=== PATIENT | female | born 1970 | race Caucasian/White ===

== ENCOUNTER → 2017-06-18 | Outpatient (CLI) | payer BC ==
--- NOTE | 2017-06-18 13:53 | MAMMOGRAPHY REPORT ---
BILATERAL DIGITAL SCREENING MAMMOGRAM TOMOSYNTHESIS WITH CAD: 06/18/2017 CLINICAL HISTORY: Routine screening. Patient has no complaints. TECHNIQUE: Breast tomosynthesis in addition to standard 2D mammography was performed. Current study was also evaluated with a Computer Aided Detection (CAD) system. COMPARISON: Comparison is made to exams dated: 05/13/2016 mammogram, 01/18/2015 mammogram, 01/05/2014 ma mmogram, 01/04/2013 mammogram, and 01/10/2004 mammogram - [facility]. BREAST COMPOSITION: There are scattered areas of fibroglandular density in both breasts. FINDINGS: No suspicious masses, calcifications, or areas of architectural distortion are noted in ei ther breast. There has been no significant interval change compared to prior exams. IMPRESSION: ACR BI-RADS CATEGORY 1: NEGATIVE There is no mammographic evidence of malignancy. A 1 year screening mammogram is recommended. The pa tient will receive written notification of the results. Approximately 10% of breast cancers are not detected with mammography. A negative mammographic report should not delay biopsy if a clinically suggestive mass is present. Dariana Matt M.D. ah/:06/18/2017 12:55:35 Child Welfare Assistant: Kareen RENDON(Ant)(M), [facility] letter sent: Normal 1/2 BI-RADS Code: ACR BI-RADS Category 1: Negative
== END | disposition home or self-care (01) ==
LOC: C.MAMM 08:41
PROVIDERS: ATTEND Obstetrics & Gynecology
DX: Z12.31 Encounter for screening mammogram for malignant neoplasm of breast (principal)

== ENCOUNTER → 2017-09-21 | Outpatient (CLI) | payer OTHER | END | disposition home or self-care (01) | LOC: C.PAPS 17:46 | PROVIDERS: ATTEND Obstetrics & Gynecology | DX: Z01.419 Encounter for gynecological examination (general) (routine) without abnormal findings (principal) ==

== ENCOUNTER 2021-03-11 07:55 | Observation (INO) ==
--- NOTE | 2021-02-05 14:27 | PAT Medication Instructions ---
Medication Instructions Date of Service February 05, 2021 Home Medications Medication Instructions Recorded ibuprofen 800 mg tablet 800 mg PO .COMPLEX PRN #30 tab 01/22/21 cetirizine 10 mg tablet 10 mg PO QPM triamcinolone acetonide 0.1 % topical cream 1 appln TOPICAL QPM multivitamin 1 tab PO QAM ibuprofen 800 mg tablet 800 mg PO .COMPLEX PRN Calcium Otc 1 tab PO QAM ascorbic acid (vitamin C) [Vitamin C] 500 mg PO QPM cyanocobalamin (vitamin B-12) 5,000 mcg PO QPM diclofenac sodium [Voltaren] 2 gm TOP QID PRN norethindrone acetate [Aygestin] 5 mg PO QPM omega 3-elq-hpk-fish oil [Fish Oil] 1 cap PO QPM sertraline 200 mg PO QPM vit C-E-zinc rfz-wgabdv-rkziuc [[facility]] 1 tab PO QPM Continue as directed triamcinolone acetonide 0.1 % topical cream 1 appln TOPICAL QPM diclofenac sodium [Voltaren] 2 gm TOP QID PRN Do not use topical creams on or around surgical site within 24 hours of surgery ASK your surgeon for instructions ibuprofen 800 mg tablet 800 mg PO .COMPLEX PRN STOP taking 2 weeks before surgery If surgery is within 2 weeks, stop taking as soon as possible. omega 9-zcy-xqy-fish oil [Fish Oil] 1 cap PO QPM vit C-E-zinc mms-qnecfl-eqfvxp [[facility]] 1 tab PO QPM DO NOT take the morning of surgery multivitamin 1 tab PO QAM Calcium Otc 1 tab PO QAM Take evening before surgery cetirizine 10 mg tablet 10 mg PO QPM ascorbic acid (vitamin C) [Vitamin C] 500 mg PO QPM cyanocobalamin (vitamin B-12) 5,000 mcg PO QPM norethindrone acetate [Aygestin] 5 mg PO QPM (unless otherwise instructed by surgeon) sertraline 200 mg PO QPM Other Notes If you have any questions please call us at [phone] or [phone] or [phone] or [phone]
--- NOTE | 2021-02-12 09:22 | Anesthesiology Consultation ---
Date of Service February 12, 2021 Assessment & Plan (1) Encounter for pre-operative examination: COVID Status: As of 02/12 assessment, patient denies travel to endemic area, known exposure/sick contacts, or symptoms of COVID19. Patient advised to adhere to social distancing guidelines, wear a mask in public and avoid large crowds or unnecessary travel in the 2 weeks leading up to surgery. Preoperative COVID19 testing to be completed prior to surgery per surgeon's arrangements. Patient encouraged to be extra cautious/conscientious with COVID precautions between COVID testing and surgery. HCG AM DOS Chart Review Chart Review: Acceptable Risk for Surgery and Patient seen in Pre Admission Testing Teaching & Discussion Instructed NPO after midnight before surgery, except medications with 15 cc of water. Medication instructions provided according to the PAT guidelines. History Surgery Operation Date: 03/11/21 07:30 Proposed Procedures p Robotic Total Laparoscopic Hysterectomy - Suha Braga MD, FACOG Height/Weight Height: 5 ft 7 in Weight: 61.1 kg Allergies Allergy/AdvReac Type Severity Reaction Status Date / Time amoxicillin Allergy Unknown Diarrhea Verified 02/12/21 08:10 erythromycin base AdvReac Unknown Diarrhea Verified 02/12/21 08:10 Medications Home Medications Medication Instructions Recorded Confirmed Last Taken cetirizine 10 mg tablet 10 mg PO QPM tab 05/24/19 02/12/21 Unknown triamcinolone acetonide 0.1 % 1 appln TOPICAL QPM #1 gm 05/24/19 02/12/21 Unknown topical cream multivitamin 1 tab PO QAM 09/27/19 02/12/21 Unknown ibuprofen 800 mg tablet 800 mg PO .COMPLEX PRN #30 tab 01/22/21 02/12/21 Unknown ascorbic acid (vitamin C) [Vitamin 500 mg PO QPM 02/05/21 02/12/21 Unknown C] cyanocobalamin (vitamin B-12) 5,000 mcg PO QPM 02/05/21 02/12/21 Unknown diclofenac sodium [Voltaren] 2 gm TOP QID PRN 02/05/21 02/12/21 Unknown norethindrone acetate [Aygestin] 5 mg PO QPM 02/05/21 02/12/21 Unknown omega 7-phm-shp-fish oil [Fish Oil] 1 cap PO QPM 02/05/21 02/12/21 Unknown sertraline 200 mg PO QPM 02/05/21 02/12/21 Unknown vit C-E-zinc jkl-hcooor-hbeesd 1 tab PO QPM 02/05/21 02/12/21 Unknown [[facility]] calcium acetate PO 02/12/21 02/12/21 Unknown ibuprofen 600 mg tablet 600 mg PO Q8H PRN #20 tab 02/12/21 02/12/21 Unknown oxycodone-acetaminophen 5 mg-325 1 tab PO Q6H PRN #20 tab 02/12/21 02/12/21 Unknown mg tablet Past Medical History Medical History Acne Anxiety Chronic insomnia Dermatitis History of asthma NO INHALERS, PT THINKS MAY HAVE BEEN ALLERGY-RELATED History of herpes zoster IN HER 20s History of irritable bowel syndrome UNDER CONTROL Lactose intolerance Leiomyoma of uterus Seasonal allergies Temporomandibular joint disorder CLICKS, NO LOCKING Exercise / Class Metabolic Activity II 4-5 Yardwork/Stairs/Walk up hill Past Family History Family History Mother Urinary tract infection Vaginal candidiasis Bladder incontinence Leiomyoma of uterus Leiomyoma Of The Uterus Osteoporosis Chronic cough Breast cancer Sleep apnea in adult Adult Sleep Apnea Hypertension Aunt Diabetes paternal aunt Father Coronary heart disease Nephrolithiasis Uncle Malignant melanoma of skin maternal uncle Family/Other Diabetes Glaucoma Family hx of colon cancer MATERNAL GREAT AUNT Grandmother (Maternal) Hyperlipidemia Grandfather (Maternal) Eye cancer Peptic ulcer Grandfather (Paternal) Heart disease Past Surgical History Surgical History H/O removal of cyst GROIN H/O sigmoidoscopy History of gynecologic surgery partial hymenectomy-1990 Nausea and vomiting after administration of anesthetic agent NAUSEA S/P skin biopsy nape of neck S/P wisdom tooth extraction Past Anesthesia History No Hx of Anesthesia Complications and No Family Hx of Anesthesia Complications History of PONV No Hx of Motion Sickness and History of PONV (NAUSEA ONLY) Social History Smoking Status: Never smoker Do You Dip or Chew Tobacco: No Hx Alcohol Use: Yes Alcohol type: wine and hard liquor alcohol intake frequency: 0-2 drinks per day Hx Substance Use: No Review of Systems Pt denies any recent chest pain, shortness of breath, palpitations, cough, fever, URI, or uncontrolled acid reflux. Physical Exam Vital Signs BP: 127/89 P: 78bpm SPO2: 98% RA T: 99.0 F R: 16 ENMT Mouth: no dental restorations, no chipped teeth and no loose teeth Thyromental Distance: < 3.5 Finger Breadths (3) Mallampati Class: III Neck normal visual inspection; neck extension not limited Respiratory normal respiratory effort, lungs clear to auscultation Cardiovascular RRR, no murmur, no edema Lab Results Anesthesia Preop Results Results Anesthesia Widget: WBC 6.01 K/uL (4.8-10.8) 02/12/21 Hgb 14.0 g/dL (12.0-16.0) 02/12/21 Hct 42.3 % (37-47) 02/12/21 Plt 279 K/uL (130-400) 02/12/21 Na 138 mmol/L (136-145) 02/12/21 K 4.1 mmol/L (3.5-5.1) 02/12/21 Cl 108 mmol/L (98-107) H 02/12/21 CO2 26 mmol/L (21-32) 02/12/21 BUN 17 mg/dl (7-18) 02/12/21 Creat 0.79 mg/dl (0.6-1.2) 02/12/21 Glucose Level 84 mg/dl (70-99) 02/12/21 Blood Type B Negative 02/12/21 Antibody Screen NEGATIVE 02/12/21
[~2021-03-11 07:55] MED LIST: LACTATED RINGER'S 1,000 ML IV SCH; LR 15ML/HR IV SCH; ceFAZolin 2000MG 2,000 MG/15 ML SYR IV SCH
[2021-03-11] MEDS ORDERED: ROCURONIUM BROMIDE 10 MG/ML 5 ML VIAL IV ONE (08:35)
[2021-03-11] MEDS ORDERED: MIDAZOLAM HCL 1 MG/ML 2ML VIAL ONE (08:35)
[2021-03-11] MEDS ORDERED: PROPOFOL IV EMULSION 10 MG/ML 20 ML VIAL IV ONE (08:35)
[2021-03-11] MEDS ORDERED: LIDOCAINE 2% 2 ML VIAL/AMP(20MG/ML) INFIL ONE (08:35)
[2021-03-11] MEDS ORDERED: fentaNYL citrate 100 MCG/2 ML VIAL ONE (08:35)
--- NOTE | 2021-03-11 09:28 | History & Physical Bridge Note ---
Date of Service March 11, 2021 History & Physical Bridge Note I have examined the patient, reviewed the History & Physical and in the interval since the performance of the History & Physical I have noted the following changes of clinical significance: no changes noted
[2021-03-11] MEDS ORDERED: HYDROmorphone INJ 1 MG/ML SYRINGE IV PRN (09:30)
[2021-03-11] MEDS ORDERED: ATROPINE SULFATE 0.1 MG/ML 10ML SYR IV PRN (09:30)
[2021-03-11] MEDS ORDERED: ONDANSETRON INJ 2 MG/ML 2 ML VIAL IV PRN ×2 (09:30→14:12)
[2021-03-11] MEDS ORDERED: LABETALOL HCL IV 5 MG/ML 20ML IV PRN (09:30)
[2021-03-11] MEDS ORDERED: PROMETHAZINE HCL 12.5 MG in SODIUM CHLORIDE 0.9% 50 ML IV PRN ×2 (09:30→14:12)
[2021-03-11] MEDS ORDERED: fentaNYL citrate 100 MCG/2 ML VIAL IV PRN (09:30)
[2021-03-11] MEDS ORDERED: NALOXONE HCL 0.4 MG/1 ML VIAL/CARP IV PRN (09:30)
[2021-03-11] MEDS ORDERED: FLUMAZENIL 0.1 MG/1 ML 10 ML VIAL IV PRN (09:30)
[2021-03-11] MEDS ORDERED: ePHEDrine sulfate 50 MG/ML AMP IV PRN (09:30)
[2021-03-11] MEDS ORDERED: BUPIVACAINE 0.5 % 5 MG/1 ML MPF 30ML VIAL ONE (09:41)
[2021-03-11] MEDS ORDERED: METHYLENE BLUE 0.5% 10 ML VIAL ONE (09:41)
[2021-03-11] MEDS ORDERED: FAMOTIDINE/PF 20 MG/2 ML VIAL IV ONE (09:44)
[2021-03-11] MEDS ORDERED: ACETAMINOPHEN 1000 MG/100 ML IV IV ONE (09:44)
[2021-03-11] MEDS ORDERED: NEOSTIGMINE METHYLSULFATE 1 MG/ML 10ML VIAL ONE (10:27)
[2021-03-11] MEDS ORDERED: GLYCOPYRROLATE 0.2 MG/ML VIAL ONE ×2 (10:27→12:03)
[2021-03-11] MEDS ORDERED: DEXAMETHASONE SOD INJ 4 MG/ML VIAL ONE (10:27)
[2021-03-11] MEDS ORDERED: ONDANSETRON INJ 2 MG/ML 2 ML VIAL ONE (10:27)
[2021-03-11] MEDS ORDERED: KETOROLAC 30 MG/ML VIAL ONE (10:27)
[2021-03-11] MEDS ORDERED: TISSEEL FIBRIN SEALANT 4ML TOP ONE (10:47)
[2021-03-11] MEDS ORDERED: HYDROmorphone INJ 2 MG/ML SYR/VIAL ONE (12:11)
--- NOTE | 2021-03-11 13:35 | Operative Report ---
PG Post Operative Report Pre & Post Diagnosis Operation Date: 03/11/21 09:50 Pre-Op Diagnosis: Leiomyoma of Uterus Post-Op Diagnosis: Leiomyoma of Uterus, uterus greater than 250grams I identified the patient and participated in the time-out.: Yes Procedure Operation Date: 03/11/21 09:50 Actual Procedures p Cystoscopy, Robotic Laparoscopic Supracervical Hysterectomy using Excite Procedure, Left Salpingectomy (Left) - Suha Braga MD, FACOG Surgeon Suha Braga MD, FACOG Vice President Process Dr. Moreno Estimated Blood Loss 30 Findings Consistent with Post-Op Diagnosis Specimens Uterus left fallopian tube Description of Procedure Patient was given a general anesthetic, prepped and draped in dorsal lithotomy position in yellow fin lauren stirrups. Care was taken to position the legs and arms properly with no excess pressure on any area. Pre-operative antibiotics were given and SCDs applied earlier. Styles catheter was inserted into her bladder, V-Care manipluator was placed in the uterus. Gloves were changed and then a supra-umbilical incision was made with scalpel, using Rekha technique, we dissected through the subcutaneous fat, fascia, split the rectus muscles and then entered the peritoneal cavity. Blunt tip Rekha Trochar then inserted and balloon inflated to stabilize the port. CO2 gas was then used to insufflate the peritoneal cavity. Findings. Enlarged uterus. There was also a pedunculated posterior fibroid attached the left side of the uterus. The appendix was draped down into the pe lvis on the right pelvic sidewall there was a small left paratubal cyst ovaries appeared normal Deep tendelenberg position was obtained. 3 robotic ports were then placed, one on the left, one on the right side under direct visualization. 11mm bladeless accessory port placed in left upper quadrant under direct visualization. Robot docked. Arm #1 Bipolar [place] grasper, arm #2 Monopolar Radha. #3 alternated between prograsp and tenaculum, Fallopian tubes were identified and the left removed using the monoplar radha to dissect them away from their attachments and removed thru the accessory port. The right tube was descending into the right sidewall and would have required extensive dissection to remove so I did not as risks were not worth the benefit. Ureter was identified on each side and followed a normal course. Distal to the left ovary, the blood supply was coagulated with the bipolar [place] and then cut with Radha. We were well away from the ureter. Round ligament was coa gulated and then cut. Uterine vessels were then skeletonized, bladder flap was sharply dissected away with radha. Uterine vessels were then coagulated close to the cervix staying away from the left ureter. Vessels then cut. Exact same process was repeated on the right side taking note of the location of the right ureter. Note we removed the fibroid in the uterus away with the prograsp and the te naculum at various points for visualization and also with the Vcare manipulator Uterus was amputated just above the cervical stump using monopolar radha and then uterus was placed into the upper left quadrant for safekeeping along with the large pedunculated fibroid Instrument exchange then occurred. Arm #1Cobra Grasper, Arm # 2 became the TIKA needle emergency vehicle driver. Using a 9 inch 2 OV lock 90-day suture I did close the cervical stump from anterior to posterior for hemostasis suture was cut so there was no tail needle removed the excess report Generous irrigation and suction, hemostasis excellent, Tisseal applied to pedicles. Cystoscopy performed and no injury to the bladder, no sutures noted, good strong jets were noted from both right and left ureter openings. Cystoscope removed and a new styles catheter placed. Robot undocked, Using a 5 mm laparoscope into one of the robotic ports I then remove the umbilical Perez trocar a 15 mm trocar was then introduced under direct visualization a large surgical bag through the 15 port was then placed the specimen was grasped with a small Max and then placed into the bag. Once this was done the bag was been brought to the umbilicus the port was removed and an Joseluis retractor was placed into the bag to maintain opening. It should be noted that we looked laparoscopically determined that the bag was fully contained the fibroid and pneumoperitoneum was maintained. Using the excite technique we carefully removed the uterus and fibroid in many fragments using the C cut technique. Care was taken to avoid punctures into the bag at the end of the removal of the specimen and the bag was removed along with the Joseluis retractor. At this stage after generous irrigation and suction of the blood in the upper quadrant from the uterine specimen hemostasis looked excellent the pelvis was also hemostatic it should be noted we used reverse Trendelenburg to drain as much fluid away from the upper abdomen and suction this up with the suction geological specialist Ports removed gas allowed to escape Incisions injected with Marcaine, fascia closed in the umbilical incision carefully with 0-vicryl and a deep stitch into the accessory port with 0-Vicryl. 4-0 subcuticular skin closures on all incisions, dermabond applied. Sponge and instrument counts correct. I reviewed Styles catheter was removed at the end of the procedure urine was clear vagina had no collections of blood I attest to the content of the Intraoperative Record and any orders documented therein. Any exceptions are noted below. Procedure Pre-op/Post-op diagnoses: Pre-Op/Post-Op Diagnoses Operation Date: 03/11/21 09:50 Pre-Op Diagnosis: Leiomyoma of Uterus Post-Op Diagnosis: Leiomyoma of Uterus, uterus greater than 250grams Procedure: Procedures Operation Date: 03/11/21 09:50 Actual Procedures Side Surgeon p Cystoscopy, Robotic Laparoscopic Supracervical Hysterectomy using Excite Procedure, Left Salpingectomy Left Suha Brgaa MD, FACOG Narrative: note massive uterus, case took 2.5 hours
[2021-03-11] MEDS ORDERED: NON-FORMULARY MEDICATION (Acetaminophen 500 mg Capsule) PO PRN (14:12)
[2021-03-11] MEDS ORDERED: ACETAMINOPHEN 325 MG TAB PO PRN (14:12)
[2021-03-11] MEDS ORDERED: LACTATED RINGER'S 1,000 ML IV SCH (14:12)
[2021-03-11] MEDS ORDERED: IBUPROFEN 600 MG TAB PO PRN (14:12)
[2021-03-11] MEDS ORDERED: ZOLPIDEM TARTRATE 5 MG TAB PO PRN (14:12)
[2021-03-11] MEDS ORDERED: MAGNESIUM HYDROXIDE SUSP 30 ML UDC PO PRN (14:12)
[2021-03-11] MEDS ORDERED: SIMETHICONE 80 MG CHEW PO PRN (14:12)
[2021-03-11] MEDS ORDERED: oxyCODONE/ACETAMINOPHEN 5mg/325mg TAB PO PRN ×3 (14:12)
[2021-03-11] MEDS ORDERED: KETOROLAC 30 MG/ML VIAL IV PRN (14:12)
[2021-03-11] MEDS ORDERED: MEPERIDINE HCL 50 MG/ML CARP IV PRN (14:12)
[2021-03-11] MEDS ORDERED: bisacodyL 10 MG SUPP PR PRN (14:12)
--- NOTE | 2021-03-11 14:25 | Anesthesiology Progress Note ---
Date of Service March 11, 2021 Anesthesia Post Procedure Vital Signs Vital Signs: Temp Pulse Pulse Resp BP BP Pulse Ox 03/11/21 14:00 80 15 126/77 94 03/11/21 13:50 76 13 121/77 99 03/11/21 13:40 83 16 123/80 98 03/11/21 13:33 37.4 C 97 H 14 141/91 H 97 03/11/21 08:36 36.9 C 76 18 137/98 198 H Transfer of Care Handoff Completed per policy Notes Mental Status: alert / awake / arousable Patient Amnestic to Procedure: Yes Nausea / Vomiting: adequately controlled Pain: adequately controlled Airway Patency, RR, SpO2: stable & adequate BP & HR: stable & adequate Hydration State: stable & adequate Anesthetic Complications: no major complications apparent
[2021-03-11] MEDS ORDERED: CETIRIZINE HCL 10 MG TABLET PO SCH (21:00)
[2021-03-11] MEDS ORDERED: TRIAMCINOLONE ACET 0.1% CR 15 GM TUBE TOP SCH (21:00)
[2021-03-11] MEDS ORDERED: ASCORBIC ACID 500 MG TAB PO SCH (21:00)
[2021-03-11] MEDS ORDERED: SERTRALINE HCL 100 MG TABLET PO SCH (21:00)
[2021-03-11] MEDS ORDERED: DOCUSATE SODIUM 100 MG CAP PO SCH (21:00)
[2021-03-11] MEDS ORDERED: CEROVITE ADV FORMULA TAB PO SCH (21:00)
[2021-03-11] MEDS ORDERED: CYANOCOBALAMIN (VITAMIN B-12) 2,500 MCG TAB.SUBL SL SCH (21:00)
[2021-03-11] MEDS ORDERED: OMEGA-3 (PURIFIED FISH OIL) 1 GM CAP PO SCH (21:00)
[2021-03-12] MEDS ORDERED: MULTIVITAMIN TAB PO SCH (09:00)
--- NOTE | 2021-03-18 10:54 | Discharge Summary ---
Date of Service March 18, 2021 Patient had total laparoscopic hysterectomy on March 11 and was discharged a few late hours later Discharge Data Procedures Performed Operation Date: 03/11/21 09:50 Actual Procedures p Robotic Laparoscopic Supracervical Hysterectomy using Excite Procedure, Left Salpingectomy (Left) - Suha Braga MD, AUDREY s Cystoscopy(Left) - Suha Braga MD, AUDREY Hospital Course (1) Fibroids, intramural: Patient had a total laparoscopic hysterectomy on the same day a few hours later she met discharge criteria she was voiding well ambulating well tolerating an oral diet and her pain was well controlled with oral pain medication Discharge instructions were reviewed with the patient and she had follow-up in the office Coding Level of Care Code None Diagnoses Fibroids, intramural D25.1
== END 2021-03-11 18:53 | disposition home or self-care (01) ==
LOC: ASU 07:55 → 4N 07:55
DX: D25.9 Leiomyoma of uterus, unspecified; Z88.1 Allergy status to other antibiotic agents; Z79.899 Other long term (current) drug therapy; J45.909 Unspecified asthma, uncomplicated